=== PATIENT | male | born 1965 | race Caucasian/White ===

== ENCOUNTER 2017-04-25 10:22 | Emergency (ER) | payer MEDICAID ==
[2017-04-25] MEDS ORDERED: Methocarbamol TAB* 500 MG PO ONE (10:45)
[2017-04-25] MEDS ORDERED: Dexamethasone IV* 4 MG/ML 1 ML (4 MG) IM ONE (10:45)
--- NOTE | 2017-04-25 12:45 | RAD ---
Indication: Neck injury after fall. CT of the cervical spine was obtained in the axial plane. Sagittal and coronal reconstructed images were obtained. The skull base demonstrates mastoid air cells to be well aerated. The skull base is unremarkable. The C1 ring is intact. The remainder of the vertebral bodies appear normal in height and alignment without evidence of fracture. At C2-C3 and C3-C4 minimal broad-based protrusion is noted. At C3-C4 minimal bilateral uncovertebral joint hypertrophy is noted. At C4-C5 degenerative disc disease with spondylytic ridge and broad-based protrusion flattens the thecal sac. No fractures identified. No central foraminal stenosis is noted. At C5-C6 spondylitic ridge flattens the thecal sac. No focal protrusion is identified. Right uncovertebral joint hypertrophy and right foraminal stenosis is noted. At C6-C7 spondylitic ridge flattens the thecal sac. No focal protrusion is identified. No central foraminal stenosis is noted. At C7-T1 and T1-T2 the disc spaces are unremarkable. IMPRESSION: Degenerative disc disease at C4-C5, C5-C6 and C6-C7. No definite fracture is identified.
[2017-04-25] MEDS ORDERED: Ketorolac INJ* 60 MG/2 ML VIAL IM ONE (12:59)
--- NOTE | 2017-04-25 13:30 | RAD ---
Indication: Back pain. 2 views of the thoracic spine demonstrates vertebral bodies to be normal in height. Diffuse osteopenia is noted. No fractures are identified. Pedicles appear intact. IMPRESSION: Osteopenia. No fracture is identified.
[2017-04-25 14:25] VITALS: BP 136/71
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
== END 2017-04-25 14:24 | disposition home or self-care (01) ==
LOC: ED 10:22
DX: M50.321 Other cervical disc degeneration at C4-C5 level (principal); M54.6 Pain in thoracic spine; F17.200 Nicotine dependence, unspecified, uncomplicated
CPT/HCPCS: 72070; 72125; 96372; 99282; A9270-GY; J1100; J1885